=== PATIENT | female | born 1965 | race Native Hawaiian/Other Pacific Islander ===

== ENCOUNTER 2016-08-03 07:21 | Outpatient (CLI) | payer BC, OTHER | END 2016-08-03 23:59 | DX: Z00.00 Encounter for general adult medical examination without abnormal findings (principal) ==

== ENCOUNTER 2018-03-16 17:49 | Outpatient (CLI) | payer OTHER ==
--- NOTE | 2018-03-16 20:47 | Ultrasound Report ---
Reason: UMBILICAL ABNORMALITY Procedure Date: 03/16/2018 Accession Number: [id number] / [id number] Procedure: US - Abdomen Limited CPT Code: FULL RESULT: EXAM: ABDOMEN ULTRASOUND LIMITED EXAM DATE: 03/16/2018 06:37 PM. CLINICAL HISTORY: UMBILICAL ABNORMALITY. COMPARISON: None. TECHNIQUE: Real-time scanning was performed with static images obtained. FINDINGS: Area of the umbilicus was scanned. No abnormal fluid collections. No superficial masses. No hernias. IMPRESSION: No acute sonographic abnormalities. RADIA
== END 2018-03-16 17:50 | disposition home or self-care (01) ==
LOC: DI 17:49
PROVIDERS: ATTEND Physician Assistant Medical
DX: Q89.9 Congenital malformation, unspecified (principal)
CPT/HCPCS: 76705

== ENCOUNTER 2022-06-06 12:39 | Outpatient (CLI) | payer OTHER ==
[~2022-06-06 12:39] MED LIST: GADOBUTROL 10 MMOL/10 ML VIAL ONE
[2022-06-06] MEDS ORDERED: GADOBUTROL 10 MMOL/10 ML VIAL IVP ONE (18:08)
--- NOTE | 2022-06-16 11:58 | MRI Report ---
PROCEDURE: IAC'S W/WO INDICATIONS: HEARING LOSS CONTRAST: 8.2ml gadavist TECHNIQUE: Noncontrast sagittal T1 spin echo, axial FLAIR, axial gradient echo, axial diffusion and ADC through the brain. Axial thin-slice 3D CISS, coronal balanced GE, axial T1 spin echo with fat saturation thr ough the internal auditory canals. After the administration of contrast, thin slice axial and hancock l T1 spin echo with fat saturation through the internal auditory canals, and axial T1 spin echo with fat saturation through the brain. COMPARISON: None. FINDINGS: Avidly enhancing mass in the right cerebellopontine angle and internal auditory canal mass measuring 1.4 x 1.1 cm maximum axial dimension and 1.0 cm maximum craniocaudal dimension. The mass completely f ills and widens the right internal auditory canal extending laterally to the level of the porus acous ticus. The mass closely approximates but does not appear to abut the lateral margin of the right edel . The ventricular system and basilar cisterns are patent. No restricted diffusion to indicate recent ischemia. No unexpected intracranial susceptibility. Mild global cerebral volume loss. No significant orbital abnormality. Paranasal sinuses are clear. Trace right mastoid air cell effusion. IMPRESSION: Avidly enhancing mass within the right cerebellopontine angle and right internal affairs commander y canal, completely filling and slightly expanding the right internal auditory canal. Findings consis tent with schwannoma. Reviewed by: Uzair Stroud MD on 06/16/2022 11:56 AM PST Approved by: Uzair Stroud MD on 06/16/2022 11:56 AM PST Station ID: [id number]
== END 2022-06-06 12:40 | disposition home or self-care (01) ==
LOC: DI 12:39
PROVIDERS: ATTEND Otolaryngology
DX: D33.3 Benign neoplasm of cranial nerves (principal); H90.41 Sensorineural hearing loss, unilateral, right ear, with unrestricted hearing on the contralateral side
CPT/HCPCS: 70553; A9585